=== PATIENT | male | born 1990 | race Two or more races ===

== ENCOUNTER 2020-06-29 22:51 | Emergency (ER) | payer OTHER, SELFPAY ==
[2020-06-30 00:26] VITALS: BP 144/100; PULSE 93; TEMP 36.7; O2SAT 98; BMI 62.8
--- NOTE | 2020-06-30 00:33 | ED.EPISTAXIS ---
History of Present Illness General Chief Complaint: Epistaxis Stated Complaint: Nose bleed Time Seen by Provider: 06/30/20 00:33 Source: patient Mode of arrival: ambulatory Limitations: no limitations History of Present Illness HPI Narrative: This is a 29-year-old male who states that he began having a bloody nose at approximately 9:00 p.m. this evening and he felt like it was coming out of both nostrils at the time, and he states that it lasted approximately 4 minutes. He states that this happened while he was watching TV and denies any use medications or drugs through his nostrils. In addition, he denies any bleeding disorders. Related Data Allergies Allergy/AdvReac Type Severity Reaction Status Date / Time No Known Allergies Allergy Unverified 05/11/20 16:11 Review of Systems Review of Systems: Pertinent positives and negatives as stated in HPI 10 point review systems is otherwise negative. PMFSH Past Medical History Source: nursing notes reviewed Medical History No known health problems No known health problems Social History Social History Advance Directives: No Advance Directives Information Provided: No Physical Exam Vital Signs: Vital Signs: Last Vital Signs Temp 98.0 F 06/30/20 00:26 Pulse 93 06/30/20 00:26 BP 144/100 H 06/30/20 00:26 Pulse Ox 98 06/30/20 00:26 Body Mass Index 62.8 VITAL SIGNS: Reviewed. GENERAL: Well developed, well nourished, in no acute distress. HEAD: Normocephalic/atraumatic, EYES: PERRLA, EOMI intact without pain, no nystagmus/pallor/icterus noted EARS: Ext canals without abnormality, TMs non-bulging and non-erythematous NOSE: Nares patent bilateral , stigmata of bleeding in the left nare without septal hematoma noted, however there is evidence of small ulcerations of unclear etiology. OROPHARYNX: no oral lesions noted, posterior pharynx clear and non-erythematous without noted tonsillar enlargement/erythema/exudates NECK: Supple, no adenopathy LUNGS: Normal breath sounds. No adventitious sounds or accessory muscle use. SpO2<98> CARDIOVASCULAR: Regular rate and rhythm without noted murmurs, no JVD or lower extremity edema. ABDOMEN: Soft, non-tender, non-distended with bowel sounds. No rigidity. No guarding. No palpable masses or hernias noted MUSCULOSKELETAL: No tenderness, deformities, or effusions noted on gross inspection. EXTREMITIES: No cyanosis, clubbing or edema. SKIN: Inspection of the skin reveals no rashes, ulcerations, jaundice, pallor, or petechiae. NEUROLOGIC: Alert and oriented x 4. Strength and sensation to light touch were grossly intact x 4. Course Course Course Narrative: This is a 29-year-old male with history and clinical presentation consistent with benign epistaxis although there is noted punctate ulcerations to the septum of the left nare. Patient will be discharged to home in stable condition with Afrin and instructed to follow-up with his primary care provider by calling the office 1st thing in the morning. Discharge Plan Discharge Clinical Impression: Epistaxis Instructions: Nosebleed (ED) Additional Instructions: 1. Please obtain saline spray, this is available at any [facility] and utilize this in each nare daily to help keep mucosa moist. 2. You have been given a prescription for Afrin which should be used by applying 1 spray to each nare if you develop a repeat nose bleed and apply pressure to the nose after use of the Afrin for 5 minutes. If this does not stop the nose bleed please proceed to the emergency department. 3. There were small ulcerations noted to the septum of the left nare and should be followed up with by your primary care provider and a referral made to a specialist as appropriate. The patient and/or family acknowledge understanding of results (as applicable), diagnosis, treatment plan, need for follow up, and symptoms that should prompt a return to the emergency room. Referrals: Mary Dowling MD [Primary Care Provider] - 2 days ( Please re-evaluate patient's epistaxis as there was noted punctate ulcerations to the septum of the left nare)
[2020-06-30] MEDS: Oxymetazoline HCl 0.05 % Nasal 15 ML SPRAY 2 SPRAY NOSTRIL-B (00:44)
[2020-06-30 00:49] VITALS: PULSE 89
== END 2020-06-30 00:53 | disposition home or self-care (01) ==
PROVIDERS: Emergency Provider Student in an Organized Health Care Education/Training Program; PCP Internal Medicine
DX: R04.0 Epistaxis (principal)
CPT/HCPCS: 99284

== ENCOUNTER 2021-08-20 07:41 | Outpatient (REF) | payer OTHER, SELFPAY ==
[2021-08-20 08:02] LABS: MANUAL DIFF FLAG NO
[2021-08-20 08:18] LABS: Basophils Percent Auto 0.2 % (0-2); Eosinophils Absolute Auto 0.4 X10*3/uL (0.0-0.4); Eosinophils Percent Auto 2.9 % (0-4); Hematocrit 45.4 % (42.0-52.0); Hemoglobin 14.8 g/dl (14.0-18.0); Imm Gran Abs Auto 0.05 X10*3/uL (0.00-0.03); Imm Gran Pct Auto 0.4 % (0.0-0.4); Lymphocytes Absolute Auto 2.5 X10*3/uL (1.2-4.9); Mean Corpuscular HGB Conc 32.6 g/dl (31.0-36.0); Mean Corpuscular Hemoglobin 27.7 pg (27.0-33.0); Mean Platelet Volume 10.9 fL (9.4-12.4); Monocytes Absolute Auto 0.7 X10*3/uL (0.1-1.2); Monocytes Percent Auto 5.5 % (2-11); Neutrophils Absolute Auto 9.4 x10*3/uL (2.0-8.3); Platelet Count 258 X10*3/uL (160-400); Red Blood Count 5.34 X10*6/uL (4.60-5.80); Red Cell Distribution Width 13.6 % (11.0-16.0)
[2021-08-20 08:32] LABS: Alanine Aminotransferase 39 U/L (0-40); Albumin Level 3.9 g/dL (3.5-5.0); Alkaline Phosphatase 85 U/L (39-117); Anion Gap 10 (12-20); Aspartate Amino Transferase 25 U/L (5-37); Bilirubin Total 0.3 mg/dL (0.0-1.0); Blood Urea Nitrogen 11 mg/dL (9-16); Calcium 9.2 mg/dL (8.4-10.2); Carbon Dioxide 25 mmol/L (22-29); Chloride 107 mmol/L (96-108); Cholesterol 157 mg/dL; Estimated Glomerular Filt Rate > 60; Glucose Fasting 100 mg/dL (60-99); HDL Cholesterol 28 mg/dL; LDL Cholesterol Calculated 99 mg/dl; Sodium 138 mmol/L (135-145); Total Protein 7.8 g/dL (6.5-8.0); Triglycerides 153 mg/dL
== END 2021-08-20 07:42 | disposition home or self-care (01) ==
LOC: HO.LAB 07:41
PROVIDERS: PCP Internal Medicine; Visit Provider Internal Medicine
DX: E66.9 Obesity, unspecified (principal); E78.5 Hyperlipidemia, unspecified
CPT/HCPCS: 36415; 80053; 80061; 85025

== ENCOUNTER 2021-10-29 01:53 | Emergency (ER) | payer OTHER, SELFPAY ==
--- NOTE | ~2021-10-29 | CT_ITS ---
EXAMINATION: CT ABDOMEN AND PELVIS WITH CONTRAST CLINICAL INFORMATION: Left lower quadrant abdominal pain COMPARISON: None TECHNIQUE: Multidetector volumetric images were obtained from the superior aspect of the liver through the pubic symphysis following administration 85 mL of Omnipaque 350 intravenous contrast. Sagittal and coronal reformatted images were obtained on the technologist's workstation. Oral contrast: No This CT examination was performed using dose optimization techniques as appropriate, variously including the following: *Automated exposure control *Adjustment of mA and/or kV according to patient size (this includes techniques or standardized protocols for targeted exams where dose is matched to indication/reason for exam; i.e. extremities or head) *Use of iterative reconstruction technique DLP: 1811 mGy-cm FINDINGS: LUNG BASES: The lung bases are clear. LIVER, GALLBLADDER, AND BILIARY TREE: Relative low-attenuation of the liver compared to the spleen suggesting fatty infiltration. No discrete liver mass. No ductal dilatation. The gallbladder is unremarkable with no evidence of radiopaque gallstones, gallbladder wall thickening, or obvious pericholecystic inflammatory changes. PANCREAS: Unremarkable. SPLEEN: Unremarkable. ADRENAL GLANDS: Unremarkable. KIDNEYS AND URETERS: The kidneys are normal in size, shape, and attenuation. No hydronephrosis, hydroureter, or calculi seen. No perinephric stranding. BLADDER: Unremarkable. GASTROINTESTINAL TRACT: The stomach is decompressed. The small bowel is normal in caliber. There is a small duodenal diverticulum. The appendix is normal. The large bowel is redundant but otherwise normal in appearance. No diverticulosis. No focal colitis. ABDOMINAL WALL: No significant hernia is appreciated. LYMPH NODES: No lymphadenopathy. VASCULAR: Unremarkable. PELVIC VISCERA: Unremarkable. OSSEOUS STRUCTURES: No suspicious osseous lesions. Mild degenerative changes in the lower lumbar spine. ORIF left femoral neck CT/CT abdomen pelvis w con IMPRESSION: No acute findings in the abdomen/pelvis to explain left lower quadrant pain. Fleischner guidelines were followed.
[2021-10-29 02:02] VITALS: BP 138/79; PULSE 98; RESP 18; TEMP 36.4; O2SAT 100; BMI 25.9
[2021-10-29 02:15] LABS: Basophils Percent Auto 0.2 % (0-2); Eosinophils Absolute Auto 0.2 X10*3/uL (0.0-0.4); Hematocrit 47.1 % (42.0-52.0); Hemoglobin 15.6 g/dl (14.0-18.0); Imm Gran Abs Auto 0.05 X10*3/uL (0.00-0.03); Imm Gran Pct Auto 0.3 % (0.0-0.4); Lymphocytes Absolute Auto 2.1 X10*3/uL (1.2-4.9); Lymphocytes Percent Auto 14.1 % (20-40); MANUAL DIFF FLAG NO; Mean Corpuscular HGB Conc 33.1 g/dl (31.0-36.0); Mean Corpuscular Hemoglobin 27.5 pg (27.0-33.0); Mean Corpuscular Volume 83.1 fL (80.0-98.0); Mean Platelet Volume 9.3 fL (9.4-12.4); Monocytes Absolute Auto 0.8 X10*3/uL (0.1-1.2); Monocytes Percent Auto 5.4 % (2-11); Neutrophils Absolute Auto 11.5 x10*3/uL (2.0-8.3); Platelet Count 480 X10*3/uL (160-400); Red Blood Count 5.67 X10*6/uL (4.60-5.80); Red Cell Distribution Width 13.4 % (11.0-16.0); White Blood Count 14.5 X10*3/uL (4.8-10.8)
[2021-10-29 02:16] LABS: Appearance Urine CLEAR; Color Urine YELLOW; Glucose Urine UA NEG (NEG); Leukocyte Esterase Urine NEG (NEG); Nitrite Urine NEG (NEG); Urine Blood NEG (NEG); Urine Ketones NEG (NEG); Urine Protein NEG (NEG-TRACE)
[2021-10-29 02:40] LABS: Alanine Aminotransferase 32 U/L (0-40); Albumin Level 4.1 g/dL (3.5-5.0); Alkaline Phosphatase 90 U/L (39-117); Anion Gap 15 (12-20); Aspartate Amino Transferase 20 U/L (5-37); Bilirubin Total 0.4 mg/dL (0.0-1.0); Blood Urea Nitrogen 12 mg/dL (9-16); Calcium 9.4 mg/dL (8.4-10.2); Carbon Dioxide 22 mmol/L (22-29); Chloride 105 mmol/L (96-108); Creatinine Clr Calc Pharmacy 107.1; Estimated Glomerular Filt Rate > 60; Glucose Random 111 mg/dL (60-115); Lipase 13 U/L (8-78); Potassium 4.1 mmol/L (3.3-5.1); Sodium 138 mmol/L (135-145); Total Protein 8.2 g/dL (6.5-8.0)
[2021-10-29 05:16] VITALS: BP 108/64; PULSE 78; RESP 16; TEMP 36.9; O2SAT 97
--- NOTE | 2021-10-29 06:58 | ED_ITS ---
HPI - Abdominal Pain General Chief Complaint: Abdominal Pain Stated Complaint: left abd pain Time Seen by Provider: 10/29/21 06:33 Source: patient Mode of arrival: ambulatory History of Present Illness HPI narrative: 31 yo male presented c/o left lower quadrant pain,nausea X 3 days ,he has hx of Moebius syndrome and hx of obesity elicited complaint: abdominal pain Onset (ago): day(s) (3) Pain Consistency: constant Location: LLQ Quality: aching Radiation: LLQ Migration to: no migration Exacerbating factors: nothing Relieving factors: nothing Related Data Previous Rx's Medication Instructions Recorded clindamycin phosphate 1 % topical 1 applic TOPICAL DAILY 15 Days #50 07/03/20 foam g escitalopram oxalate 10 mg tablet 10 mg PO DAILY 90 Days #90 tab 10/02/20 cephalexin 500 mg tablet 500 mg PO BID 30 Days #60 tab 09/19/21 Allergies Allergy/AdvReac Type Severity Reaction Status Date / Time No Known Allergies Allergy Verified 10/29/21 02:05 Review of Systems Review of Systems Yes all other systems are reviewed and are negative Constitutional: Reports no additional constitutional complaints Cardiovascular: Reports no additional cardiovascular complaints Respiratory: Reports no additional respiratory complaints Gastrointestinal: Reports abdominal pain PMFSH Past Medical History Medical History (Updated 10/29/21 @ 10:00 by Bobo Jones MD) Mobius syndrome No known health problems No known health problems Super obese Surgical History History of circumcision History of open reduction and internal fixation (ORIF) procedure Family History Family History Father Hypertension Mother Hypertension Family/Other Hypertension Diabetes Social History Social History Alcohol intake: never Advance Directives: No Advance Directives Information Provided: No Physical Exam ED Vital Signs: Vital Signs - 24 hr 10/29/21 02:02 10/29/21 05:16 10/29/21 07:57 Temperature 97.5 F 98.4 F Pulse Rate 98 78 76 Respiratory Rate 18 16 18 Blood Pressure 138/79 108/64 101/52 L Pulse Oximetry 100 97 95 BMI result Body Mass Index 25.9 Const General: cooperative Orientation/consciousness: patient oriented x3 HENMT Head: Yes normal to inspection Ears: hearing grossly normal bilaterally General nose exam: Normal external nose present Face and sinus: Yes normal facial exam Mouth: Normal oral and palatal mucosa present Throat: Yes posterior oropharynx normal Neck Neck: Yes normal visual inspection Chest Chest palpation & inspection: normal inspection of the chest Resp Effort & Inspection: normal respiratory effort and able to speak in complete sentences Auscultation: clear to auscultation bilaterally Cardio Jugular venous distension: no JVD Rate: regular rate Rhythm: regular rhythm GI Inspection: Yes normal to inspection Palpation (GI): Soft to palpation and Tenderness to palpation present (GI) (left lower quadrant) Auscultation: normal bowel sounds General: Yes no CVA tenderness Back/Spine/Pelvis Back: no CVA tenderness Skin General skin exam: no rashes or lesions noted, elasticity normal and turgor normal Lesions: no lesions Rashes: no rashes Neuro General: patient oriented x3 Cranial nerves: Yes CN's II-XII intact bilaterally Motor exam (neuro): 5/5 motor strength present throughout Course Reevaluation(s) Reevaluation #1: Patient is feeling much better at this time, CT scan is negative normal appendix no diverticulitis. I discussed with the patient the mother at this time will discharge the patient home with abdominal pain precaution. Time: 09:56 MDM - Abdominal Pain Lab Data Result diagrams: 10/29/21 02:10 10/29/21 02:10 Labs: Lab Results 10/29/21 10/29/21 10/29/21 Range/Units 02:10 02:10 02:10 WBC 14.5 H (4.8-10.8) X10*3/uL RBC 5.67 (4.60-5.80) X10*6/uL Hgb 15.6 (14.0-18.0) g/dl Hct 47.1 (42.0-52.0) % MCV 83.1 (80.0-98.0) fL MCH 27.5 (27.0-33.0) pg MCHC 33.1 (31.0-36.0) g/dl RDW 13.4 (11.0-16.0) % Plt Count 480 H D (160-400) X10*3/uL MPV 9.3 L (9.4-12.4) fL Immature Gran % (Auto) 0.3 (0.0-0.4) % Neut % (Auto) 79.0 H (45-73) % Lymph % (Auto) 14.1 L (20-40) % [place] % (Auto) 5.4 (2-11) % Eos % (Auto) 1.0 (0-4) % Baso % (Auto) 0.2 (0-2) % Lymph # (Auto) 2.1 (1.2-4.9) X10*3/uL Ball[place] # (Auto) 0.8 (0.1-1.2) X10*3/uL Eos # (Auto) 0.2 (0.0-0.4) X10*3/uL Baso # (Auto) 0.0 (0.0-0.2) X10*3/uL Abs Immat Gran (auto) 0.05 H (0.00-0.03) X10*3/uL Absolute Neuts (auto) 11.5 H (2.0-8.3) x10*3/uL Absolute Nucleated RBC 0.000 (0.0-0.012) X10*3/uL Nucleated RBC % (auto) 0.0 (0.0-0.2) /100WBC Sodium 138 (135-145) mmol/L Potassium 4.1 (3.3-5.1) mmol/L Chloride 105 (96-108) mmol/L Carbon Dioxide 22 (22-29) mmol/L Anion Gap 15 (12-20) BUN 12 (9-16) mg/dL Creatinine 0.91 (0.5-1.4) mg/dL Estim Creat Clear Calc 107.1 Estimated GFR > 60 Random Glucose 111 (60-115) mg/dL Calcium 9.4 (8.4-10.2) mg/dL Total Bilirubin 0.4 (0.0-1.0) mg/dL AST 20 (5-37) U/L ALT 32 (0-40) U/L Alkaline Phosphatase 90 (39-117) U/L Total Protein 8.2 H (6.5-8.0) g/dL Albumin 4.1 (3.5-5.0) g/dL Lipase 13 (8-78) U/L Urine Color YELLOW Urine Appearance CLEAR Urine pH 6.0 (5.0-8.0) Ur Specific [place] 1.010 (1.005-1.025) Urine Protein NEG (NEG-TRACE) MG/DL Urine Glucose (UA) NEG (NEG) MG/DL Urine Ketones NEG (NEG) MG/DL Urine Blood NEG (NEG) Urine Nitrite NEG (NEG) Ur Leukocyte Esterase NEG (NEG) Imaging Data CT scan - abdomen: Radiologist's impression: SPLEEN: Unremarkable.? ADRENAL GLANDS: Unremarkable.? KIDNEYS AND URETERS: The kidneys are normal in size, shape, and attenuation. No hydronephrosis, hydroureter, or calculi seen. No perinephric stranding. ? BLADDER: Unremarkable.? GASTROINTESTINAL TRACT: The stomach is decompressed. The small bowel is normal in caliber. There is a small duodenal diverticulum. The appendix is normal. The large bowel is redundant but otherwise normal in appearance. No diverticulosis. No focal colitis.? ABDOMINAL WALL: No significant hernia is appreciated.? LYMPH NODES: No lymphadenopathy. VASCULAR: Unremarkable. PELVIC VISCERA: Unremarkable.? OSSEOUS STRUCTURES: No suspicious osseous lesions. Mild degenerative changes in the lower lumbar spine. ORIF left femoral neck? CT/CT abdomen pelvis w con IMPRESSION: No acute findings in the abdomen/pelvis to explain left lower quadrant pain. ? Fleischner guidelines were followed. Discharge Plan Discharge Clinical Impression: Abdominal pain Patient Disposition: Home, Self-Care Instructions: Abdominal Pain (ED) Additional Instructions: Follow-up with your primary care physician tomorrow, liquid diet for 24 hour, return to the emergency room if you worse any concern Prescriptions: No Action escitalopram oxalate 10 mg tablet 10 mg PO DAILY 90 Days Qty: 90 1RF cephalexin 500 mg tablet 500 mg PO BID 30 Days Qty: 60 0RF clindamycin phosphate 1 % foam 1 applic topical DAILY 15 Days Qty: 50 0RF Referrals: Mary Dowling MD [Primary Care Provider] - 2 days
[2021-10-29] MEDS: ondansetron HCL 4 MG/2 ML VIAL IVPUSH (07:53)
[2021-10-29] MEDS: 0.9 % Sodium Chloride 1,000 ML 999 ML IVCONT (07:53)
[2021-10-29 07:57] VITALS: BP 101/52; PULSE 76; RESP 18; O2SAT 95
--- NOTE | 2021-10-29 08:22 | PC.NURSE ---
Pt received from [employer] fire chief: Pt AOX4 and offers no complaints. Heart sounds normal and lungs diminished. Pt abd round, soft and non-tender. Pt difficult stick and U/S used for IV placed to LAC. Pt may now go to CT. CT aware.
[2021-10-29] MEDS: iohexoL 350 MG/ML 100 ML INFUS..BTL IV (08:32)
--- NOTE | 2021-10-29 10:26 | PC.NURSE ---
Pt D/C from ER with instructions. Pt states understanding and denies any further questions. IV removed prior to D/C.
== END 2021-10-29 10:29 | disposition home or self-care (01) ==
PROVIDERS: Emergency Provider Emergency Medicine; PCP Internal Medicine
DX: R10.32 Left lower quadrant pain (principal); E66.9 Obesity, unspecified
CPT/HCPCS: 36415; 74177; 80053; 81003; 83690; 85025; 96361; 96374; 99283; 99284; J2405; Q9967

== ENCOUNTER 2022-05-07 15:00 | Outpatient (REF) | payer OTHER, SELFPAY | END 2022-05-07 15:01 | disposition home or self-care (01) | LOC: HO.MRI 15:00 | PROVIDERS: PCP Internal Medicine; Visit Provider Internal Medicine | DX: Z13.89 Encounter for screening for other disorder (principal) ==

== ENCOUNTER → 2022-05-20 15:54 | Outpatient (REF) | payer OTHER, SELFPAY | LOC: HO.SL 15:54 | PROVIDERS: PCP Internal Medicine; Visit Provider Internal Medicine | DX: R40.0 Somnolence (principal); E66.9 Obesity, unspecified; R06.83 Snoring | CPT/HCPCS: 95806 ==

== ENCOUNTER 2023-01-11 08:31 | Outpatient (REF) | payer OTHER, SELFPAY ==
[2023-01-11 08:44] LABS: MANUAL DIFF FLAG NO
[2023-01-11 09:06] LABS: Basophils Percent Auto 0.3 % (0-2); Eosinophils Absolute Auto 0.4 X10*3/uL (0.0-0.4); Eosinophils Percent Auto 3.4 % (0-4); Hematocrit 47.3 % (42.0-52.0); Hemoglobin 15.8 g/dl (14.0-18.0); Imm Gran Abs Auto 0.09 X10*3/uL (0.00-0.03); Imm Gran Pct Auto 0.7 % (0.0-0.4); Lymphocytes Absolute Auto 2.8 X10*3/uL (1.2-4.9); Mean Corpuscular HGB Conc 33.4 g/dl (31.0-36.0); Mean Corpuscular Hemoglobin 28.1 pg (27.0-33.0); Mean Platelet Volume 9.7 fL (9.4-12.4); Monocytes Absolute Auto 0.7 X10*3/uL (0.1-1.2); Monocytes Percent Auto 5.7 % (2-11); Neutrophils Absolute Auto 8.7 x10*3/uL (2.0-8.3); Neutrophils Percent Auto 67.9 % (45-73); Platelet Count 429 X10*3/uL (160-400); Red Blood Count 5.63 X10*6/uL (4.60-5.80); Red Cell Distribution Width 13.2 % (11.0-16.0); White Blood Count 12.8 X10*3/uL (4.8-10.8)
[2023-01-11 09:46] LABS: Alanine Aminotransferase 61 U/L (0-40); Alkaline Phosphatase 90 U/L (39-117); Anion Gap 13 (12-20); Aspartate Amino Transferase 43 U/L (5-37); Bilirubin Total 0.4 mg/dL (0.0-1.0); Blood Urea Nitrogen 11 mg/dL (9-16); Calcium 9.6 mg/dL (8.4-10.2); Carbon Dioxide 24 mmol/L (22-29); Chloride 105 mmol/L (96-108); Cholesterol 197 mg/dL; Estimated Glomerular Filt Rate > 60; Glucose Fasting 108 mg/dL (60-99); HDL Cholesterol 30 mg/dL; LDL Cholesterol Calculated 133 mg/dl; Potassium 4.4 mmol/L (3.3-5.1); Sodium 138 mmol/L (135-145); Total Protein 7.7 g/dL (6.5-8.0); Triglycerides 172 mg/dL
[2023-01-11 10:01] LABS: Thyroid Stimulating Hormone 1.25 uIU/mL (0.32-4.0)
== END 2023-01-11 08:32 | disposition home or self-care (01) ==
LOC: HO.LAB 08:31
PROVIDERS: PCP Internal Medicine; Visit Provider Internal Medicine
DX: Z00.00 Encounter for general adult medical examination without abnormal findings (principal); E66.01 Morbid (severe) obesity due to excess calories; E78.5 Hyperlipidemia, unspecified
CPT/HCPCS: 36415; 80053; 80061; 84443; 85025

== ENCOUNTER 2023-01-24 12:42 | Outpatient (REF) | payer OTHER, SELFPAY | END 2023-01-24 12:43 | disposition home or self-care (01) | LOC: HO.US 12:42 | PROVIDERS: PCP Internal Medicine; Visit Provider Internal Medicine | DX: Z13.89 Encounter for screening for other disorder (principal) ==

== ENCOUNTER 2023-02-05 09:09 | Outpatient (REF) | payer OTHER, SELFPAY ==
--- NOTE | ~2023-02-05 | US_ITS ---
EXAMINATION: US COMPLETE ABDOMEN WITH LIVER ELASTOGRAPHY CLINICAL INFORMATION: Elevated liver transaminase levels. COMPARISON: None available. TECHNIQUE: Real-time imaging of the abdominal viscera. Noninvasive ultrasound liver fibrosis assessment is performed using Gilles ElastPQ point quantification shear wave elastography (2D-SWE) with a C5-2 MHz transducer. Multiple elastography samples are obtained. FINDINGS: PANCREAS: The pancreas is obscured from visualization by the overlying bowel gas. ABDOMINAL AORTA: The proximal, middle, and distal aortic segments are normal in caliber. INFERIOR VENA CAVA: Visualized portions are normal. LIVER: The liver demonstrates normal size, contour and increased echogenicity. There are areas of focal fatty sparing. No focal solid lesion or intrahepatic biliary duct dilatation. The right lobe measures 25.1 cm in length. The left lobe measures 14.1 cm in length. Portal flow is hepatopedal. Shear wave liver elastography median stiffness is 1.54 m/s (reference: normal median stiffness is 1.3 m/s or less). IQR/median stiffness to assess sampling precision is 0.14 (reference: good quality data set is IQR/median stiffness of 0.15 or less). GALLBLADDER: Gallbladder wall thickness is 0.2 cm. The gallbladder is physiologically distended without evidence of stones, sludge, polyps, wall thickening or pericholecystic fluid. COMMON BILE DUCT: CBD is not visualized. RIGHT KIDNEY: Normal. No hydronephrosis. No renal calculi or focal parenchymal lesions. The kidney measures 11.4 cm in maximum dimension. LEFT KIDNEY: Normal. No hydronephrosis. No renal calculi or focal parenchymal lesions. The kidney measures 13.2 cm in maximum dimension. SPLEEN: Normal. The spleen measures 13.6 cm in maximum dimension. FREE FLUID: None. US/US abdomen comp w elastography IMPRESSION: 1. Diffuse hepatic steatosis with areas of focal fatty sparing. 2. Liver elastography: Median liver stiffness measures 1.54 m/s corresponding to cACLD (ruled out). REFERENCE: Society of Radiologists in Ultrasound Liver Stiffness Thresholds (2020): LIVER STIFFNESS THRESHOLDS: *Liver Stiffness equal or less than 1.3 m/s: High probability of being normal. *Liver Stiffness less than 1.7 m/s: In the absence of other known clinical signs, rules out compensated advanced chronic liver disease. *Liver Stiffness 1.7-2.1 m/s: Suggestive of compensated advanced chronic liver disease but need further test for confirmation. *Liver Stiffness over 2.1 m/s: Rules in compensated advanced chronic liver disease. *Liver Stiffness over 2.4 m/s: Suggestive of clinically significant portal hypertension. QUALITY OF DATA SET: *IQR/Median value equal or less than 0.15 implies a quality data set. *IQR/Median value over 0.15 implies a poor quality data set. SIGNIFICANT CHANGE FROM PRIOR EXAM: Significant change if liver stiffness measurement is 10% or greater from prior exam. OTHER CONSIDERATIONS: The stage of liver fibrosis may be overestimated in the setting of acute hepatitis, liver inflammation, elevated liver function tests, hepatic vascular congestion, obstructive cholestasis, non-fasting state, and infiltrative diseases such as amyloidosis and lymphoma. In some patients with NAFLD, the liver stiffness thresholds for compensated advanced chronic liver disease may be lower. In causes other than viral hepatitis and NAFLD, liver stiffness thresholds are not well established.
== END 2023-02-05 09:10 | disposition home or self-care (01) ==
LOC: HO.US 09:09
PROVIDERS: PCP Internal Medicine; Visit Provider Internal Medicine
DX: R74.01 Elevation of levels of liver transaminase levels (principal)
CPT/HCPCS: 76705; 76981

== ENCOUNTER 2023-02-09 17:50 | Emergency (ER) | payer OTHER, SELFPAY ==
[2023-02-09 18:04] VITALS: BP 139/85; PULSE 85; RESP 18; TEMP 36.2; O2SAT 95; BMI 60.2
--- NOTE | 2023-02-09 18:12 | ED.GENADULT ---
HPI - General Adult General Chief complaint: Ear Problems Stated complaint: pain in ears Time Seen by Provider: 02/09/23 18:11 Source: patient and family (patient's mother) Mode of arrival: ambulatory Limitations: no limitations History of Present Illness HPI narrative: Patient is a 32 year old assigned male at with a history of mobius syndrome presenting to the emergency department today with bilateral ear pain and a sore throat. Patient states that over the last week he has had bilateral ear pain and a sore throat. Patient denies any dizziness, lightheadedness, abdominal pain, nausea, vomiting, fever, chills, blurry vision, double vision, loss of vision, chest pain, difficulty breathing, shortness of breath, back pain, night sweats, pain with urination, increased urinary frequency, increased urinary urgency, blood in his urine or stool, syncope or a near syncopal episode, recent trauma or falls, bowel incontinence, bladder incontinence, bowel retention, bladder retention, or any other complaints at this time. Onset (ago): week(s) (1) Severity: mild Severity scale (1-10): 3 Quality: dull Pain Consistency: intermittent Relieving factors: none Exacerbating factors: none Associated symptoms: denies other symptoms Treatments prior to arrival: none Related Data Previous Rx's Medication Instructions Recorded escitalopram oxalate 20 mg tablet 20 mg PO DAILY 90 days #90 tabs 08/21/22 cephalexin 500 mg tablet 500 mg PO BID 30 days #60 tabs 11/28/22 Allergies Allergy/AdvReac Type Severity Reaction Status Date / Time No Known Allergies Allergy Verified 02/09/23 18:03 Review of Systems Constitutional: Constitutional: Reports no additional constitutional complaints, Denies chills, Denies fever(s) and Denies night sweats Eyes: Eyes: Reports no additional eye complaints, Denies blurry vision, Denies change in vision, Denies diplopia, Denies eye discharge, Denies loss of vision and Denies eye pain ENT: Denies dizziness Comments: bilateral ear pain, sore throat Cardiovascular: Cardiovascular: Reports no additional cardiovascular complaints, Denies chest pain, Denies lightheadedness, Denies Loss of Consciousness and Denies dyspnea Respiratory: Respiratory: Reports no additional respiratory complaints and Denies dyspnea Gastrointestinal: Gastrointestinal: Reports no additional gastrointestinal complaints, Denies abdominal pain, Denies melena, Denies hematochezia, Denies change in bowel habits and Denies change in stool character Genitourinary: Genitourinary: Reports no additional male genitourinary complaints, Denies hematuria, Denies oliguria, Denies difficulty urinating, Denies dysuria, Denies urinary frequency, Denies urinary hesitancy, Denies urinary incontinence and Denies urinary urgency Musculoskeletal: Musculoskeletal: Reports no additional musculoskeletal complaints, Denies numbness and Denies tingling Neurologic: Denies dizziness, Denies loss of vision, Denies numbness and Denies tingling Psychiatric: Psychiatric: Reports no additional psychiatric complaints Endocrine: Endocrine: Reports no additional endocrine complaints Hematologic/Lymphatic: Hematologic/Lymphatic: Reports no additional hematologic/lymphatic complaints Allergic/Immunologic: Allergic/Immunologic: Reports no additional allergic/immunologic complaints PMFSH Past Medical History Attestation statement: The following information was validated with the patient. (all information validated with the patient's mother) Source: old records reviewed, obtained from family (patient's mother) and nursing notes reviewed Medical History Encounter for physical examination Mild recurrent major depression Mobius syndrome No known health problems No known health problems Super obese Surgical History History of circumcision History of open reduction and internal fixation (ORIF) procedure Family History Family History Father Hypertension Mother Hypertension Family/Other Hypertension Diabetes Social History Social History Housing: Apartment Alcohol intake: never Patient Tobacco Use Status: Never used Tobacco e-Cigarette/Vaping Use: Never Used Second Hand Smoke Exposure: No Advance Directives: No Advance Directives Information Provided: No service: No Current occupational status: disabled Cognitive needs: No Hearing needs: No Vision needs: No Physical Exam ED Vital Signs: Vital Signs - 24 hr 02/09/23 18:04 Temperature 97.1 F Pulse Rate 85 Respiratory Rate 18 Blood Pressure 139/85 Pulse Oximetry 95 Oxygen Delivery Method Room Air BMI result Body Mass Index 60.2 Const General: cooperative, no acute distress, alert and awake Nutritional Appearance: well nourished Orientation/consciousness: patient oriented x3 Limitations: no limitations HENMT Head: Yes normal to inspection and Yes atraumatic Ears: hearing grossly normal bilaterally, external ears normal and TM's normal bilaterally General nose exam: Normal external nose present, no nasal discharge noted and no epistaxis Face and sinus: Yes normal facial exam, No abrasion and No laceration Mouth: Normal oral and palatal mucosa present, oropharynx normal, no drooling and no muffled voice Eyes General: appearance normal, both eyes and all related structures Periorbital: periorbital findings normal Eyelids: Yes eyelids normal Conjunctivae: conjunctivae normal Pupils: Equal, round and reactive pupils present EOM: EOMs intact bilaterally Neck Neck: Yes normal visual inspection, Yes full ROM and Yes no lymphadenopathy Chest Chest palpation & inspection: normal inspection of the chest Resp Effort & Inspection: normal respiratory effort and able to speak in complete sentences Auscultation: clear to auscultation bilaterally Cardio Rate: regular rate Rhythm: regular rhythm GI Inspection: Yes normal to inspection Neuro General: patient oriented x3 and moves all extremities Cranial nerves: Yes Equal, round and reactive pupils present Cognition (Neuro): normal cognition Motor exam (neuro): 5/5 motor strength present throughout Sensory Exam: Normal double simultaneous stimulation for sensation Coordination: [id number] test normal Extrem Other: patient has chronic deformities of bilateral hands General: Yes full ROM and Yes capillary refill normal Psych Appearance: grossly normal Mental Status: mental status grossly normal Affect: normal affect Attitude: cooperative Thought process: Normal thought process present Thought content: Normal thought content present Insight: Good insight present (Psych) Medical Decision Making Medical Decision Making MDM Narrative: Patient is a 32 year old assigned male at with a history of mobius syndrome presenting to the emergency department today with bilateral ear pain and a sore throat. Patient's physical exam was as noted in the physical exam portion of this chart. Patient's COVID/Influenza/Strep/RSV swabs were negative. I explained my physical exam findings as well as all test results to the patient and the patient's mother. I answered all questions asked by the patient and the patient's mother. I stressed the importance of the patient taking his medication as prescribed. I stressed the importance of the patient following up with his primary care provider. I stressed the importance of the patient returning to the emergency department immediately if his symptoms were to worsen or if he were to develop any dizziness, shortness of breath, difficulty breathing, chest pain, blurry vision, loss of vision, nausea, vomiting, abdominal pain, fever, chills, back pain, or any other complaints. Patient and the patient's mother verbalized agreement and understanding with this treatment plan and discharge. Differential Diagnosis Differential Diagnoses: The differential diagnosis associated with the presentation includes viral illness Lab Data MDM Lab Attestation statement: I reviewed the patient's lab results. My interpretation of these studies and their corresponding values is that they are grossly normal. Labs: Lab Results 02/09/23 02/09/23 Range/Units 18:15 18:19 Influenza Type A (PCR) NEGATIVE (Negative) Influenza Type B (PCR) NEGATIVE (Negative) RSV RNA Qual (PCR) NEGATIVE (Negative) SARS-CoV-2 RNA (RT-PCR) NEGATIVE (Negative) S. pyogenes GrpA SELMA Negative (Negative) Independent Historian Clinical information obtained from an independent historian. History obtained from or confirmed by: Parent (patient's mother provided additional history and confirmed the history provided by the patient.) Discharge Plan Discharge Clinical Impression: Viral illness Patient Disposition: Home, Self-Care Instructions: Viral Syndrome (ED) Additional Instructions: Follow up with your primary care provider. Return to the emergency department immediately if your symptoms worsen or if you develop any dizziness, shortness of breath, difficulty breathing, chest pain, blurry vision, loss of vision, nausea, vomiting, abdominal pain, fever, chills, back pain, or any other complaints. Prescriptions: No Action escitalopram oxalate 20 mg tablet 20 mg PO DAILY 90 Days Qty: 90 1RF cephalexin 500 mg tablet 500 mg PO BID 30 Days Qty: 60 0RF Referrals: Mary Dowling MD [Primary Care Provider] - Stand Alone Forms: Work/School Release Print Language: Colombian
--- NOTE | 2023-02-09 18:22 | PC.NURSE ---
viral swabs obtained
[2023-02-09 18:33] LABS: IDNOW Serial# 08D9AD1C; Strep A Nucleic Acid Negative (Negative)
[2023-02-09 19:07] LABS: Influenza A PCR NEGATIVE (Negative); Influenza B PCR NEGATIVE (Negative); Resp Syncy Virus RNA Qual PCR NEGATIVE (Negative); SARS COV2 PCR INHOUSE NEGATIVE (Negative)
== END 2023-02-09 19:41 | disposition home or self-care (01) ==
PROVIDERS: Nurse Practitioner Family; Emergency Provider Emergency Medicine; PCP Internal Medicine
DX: B34.9 Viral infection, unspecified (principal); J02.9 Acute pharyngitis, unspecified; Z20.822 Contact with and (suspected) exposure to COVID-19
CPT/HCPCS: 0241U; 87651; 99282; 99283

== ENCOUNTER 2023-12-02 07:55 | Outpatient (REF) | payer OTHER, SELFPAY ==
[2023-12-02 08:13] LABS: MANUAL DIFF FLAG NO
[2023-12-02 08:53] LABS: Basophils Percent Auto 0.3 % (0-2); Eosinophils Absolute Auto 0.4 X10*3/uL (0.0-0.4); Eosinophils Percent Auto 3.8 % (0-4); Hematocrit 46.1 % (42.0-52.0); Hemoglobin 15.4 g/dl (14.0-18.0); Imm Gran Abs Auto 0.03 X10*3/uL (0.00-0.03); Imm Gran Pct Auto 0.3 % (0.0-0.4); Lymphocytes Absolute Auto 2.7 X10*3/uL (1.2-4.9); Lymphocytes Percent Auto 27.8 % (20-40); Mean Corpuscular HGB Conc 33.4 g/dl (31.0-36.0); Mean Corpuscular Hemoglobin 28.1 pg (27.0-33.0); Mean Platelet Volume 10.9 fL (9.4-12.4); Monocytes Absolute Auto 0.6 X10*3/uL (0.1-1.2); Monocytes Percent Auto 5.9 % (2-11); Neutrophils Percent Auto 61.9 % (45-73); Platelet Count 332 X10*3/uL (160-400); Red Blood Count 5.49 X10*6/uL (4.60-5.80); Red Cell Distribution Width 12.9 % (11.0-16.0); White Blood Count 9.6 X10*3/uL (4.8-10.8)
[2023-12-02 09:42] LABS: Alanine Aminotransferase 19 U/L (0-40); Alkaline Phosphatase 139 U/L (39-117); Aspartate Amino Transferase 12 U/L (5-37); Bilirubin Direct 0.2 mg/dL (0.0-0.5); Bilirubin Total 0.5 mg/dL (0.0-1.0); Total Protein 7.9 g/dL (6.5-8.0)
== END 2023-12-02 07:56 | disposition home or self-care (01) ==
LOC: HO.LAB 07:55
PROVIDERS: PCP Internal Medicine; Visit Provider Internal Medicine
DX: D72.829 Elevated white blood cell count, unspecified (principal); R74.01 Elevation of levels of liver transaminase levels
CPT/HCPCS: 36415; 80076; 85025

== ENCOUNTER 2023-12-04 12:43 | Outpatient (AMB) | payer OTHER, SELFPAY ==
[2023-12-04 12:48] VITALS: BP 118/72; BMI 54.4
--- NOTE | 2023-12-04 12:48 | MHC.PC.OV ---
Vital Signs 12/04/23 12:48 Height 5 ft 3 in Weight 307 lb BMI 54.4 BP 118/72 Blood Pressure Location Lt brachial Position Sitting Intake Visit Reasons: Annual Exam Intake Note: Patient here for a physical exam Finance Vice President Required: No Accompanied by: Mother Allergies No Known Allergies Allergy (Verified 12/04/23 13:07) Medication List - Last Reconciled 12/04/23 by Mary Cameron MD cephalexin 500 mg PO BID 30 days escitalopram oxalate 20 mg PO DAILY 90 days Tobacco use date assessed: 12/04/23 Dental Screening Dental Screen Date: 12/04/23 Did you have a dental visit in the last 12 months?: No Did you have a dental problem in the last 6 months where you did not have access to dental care?: No Was dental information given to patient?: Patient has dentist HPI HPI Comments History of Present Illness Details This is a 33-year-old male with mobius syndrome, super super obesity and major depression that comes accompanied by mother for his physical exam. He has a deformity in hands which has only the 1st and 5th finger and they are deformed. Can not button a shirt or go to the toilet on his own. Was referred for weight management in 2021 and 2022 and did not show. I will refer him again. Depression still present with escitalopram 20 mg and I will increase it to 30 mg. [facility] Medical History Mild recurrent major depression Encounter for physical examination Super obese Mobius syndrome No known health problems No known health problems Surgical History History of open reduction and internal fixation (ORIF) procedure History of circumcision Family History Father Hypertension Mother Hypertension Family/Other Hypertension Diabetes Social History (Updated 12/04/23 @ 13:12 by Mary Cameron MD) Housing: Apartment Alcohol intake: current Alcohol intake frequency: holidays/special occasions only Alcohol type: beer Patient Tobacco Use Status: Never used Tobacco e-Cigarette/Vaping Use: Never Used Second Hand Smoke Exposure: No service: No Current occupational status: disabled Cognitive needs: No Hearing needs: No Vision needs: No Questionnaire PHQ-9 Over the last 2 weeks, how often have you been bothered by any of the following problems? 1. Little interest or pleasure in doing things: more than half the days 2. Feeling down, depressed, or hopeless: more than half the days 3. Trouble falling or staying asleep, or sleeping too much: more than half the days 4. Feeling tired or having little energy: several days 5. Poor appetite or overeating: more than half the days 6. Feeling bad about yourself - or that you are a failure or have let yourself or your family down: not at all 7. Trouble concentrating on things, such as reading the newspaper or watching television: several days 8. Moving or speaking so slowly that other people could have noticed. Or the opposite - being so fidgety or restless that you have been moving around a lot more than usual: several days 9. Thoughts that you would be better off or of hurting yourself in some way: not at all Total score: 11 Depression Screening Interpretation: Positive Depression Screening Follow-up: Existing condition and In treatment Depression Screening Done: Yes 31622 - PHQ-9 Billing: Yes Source: Developed by Drs. Mazin Vale, Dorothy Duvall, Jackson Deluca and colleagues, with an educational jesus from [employer]. Thrive Questionnaire Date Thrive assessed: 12/04/23 I am a: Patient What is your living situation today?: I have a steady place to live Within the past 12 months, did the food you bought not last and you didn't have the money to get more?: Never true Within the past 12 months, did you worry whether your food would run out before you got money to buy more?: Never true Do you have trouble paying for medicines?: No Do you have trouble getting transportation to medical appointments?: No Do you have trouble paying your heating and electricity bill?: No Do you have trouble taking care of your child, family member or friend?: No Do you have trouble with day-to-day activities such as bathing, preparing meals, shopping, managing finances, etc.?: Yes Are you currently unemployed and looking for a job?: No Are you interested in more education?: No Please select the resources that you would like help with: None Currently or been in a relationship where the following occur: no concerns reported THRIVE Score: 0 AUDIT C Alcohol Use Questionnaire (AUDIT-C) 1. How often do you have a drink containing alcohol?: Monthly or less 2. How many drinks containing alcohol do you have on a typical day when you are drinking?: 1 or 2 3. How often do you have six or more drinks on one occasion?: Never Total Score: 1 HORTENCIA-7 AMB Questionnaire HORTENCIA-7 Date HORTENCIA - 7 assessed: 12/04/23 Feeling nervous, anxious, or on edge: 3 = Nearly every day Not being able to stop or control worryin = Not at all Worrying too much about different things: 2 = More than half the days Trouble relaxin = More than half the days Being so restless that it is hard to sit still: 0 = Not at all Becoming easily annoyed or irritable: 2 = More than half the days Feeling afraid as if something awful might happen: 1 = Several days Total HORTENCIA-7 score (0-4 normal; 5-9 mild; 10-14 moderate; 15-21 severe): 10 Source: Developed by Drs. Mazin Vale, Dorothy Duvall, Jackson Deluca and colleagues, with an educational jesus from [employer]. HORTENCIA-7 Assessment Billing HORTENCIA-7 Assessment Tool: HORTENCIA-7 Assessment 55364 Review of Systems Const unobtainable due to endotracheal tube Eyes Reports no additional complaints, Denies change in vision and Denies other visual disturbances Card Denies chest pain at rest, Denies chest pain with activity, Denies edema, Denies irregular heart rhythm, Denies claudication, Denies dyspnea, Denies dyspnea on exertion, Denies orthopnea, Denies paroxysmal nocturnal dyspnea and Denies slow heart rate Resp Denies cough, Denies dyspnea and Denies dyspnea on exertion Physical exam (Primary Care) Vital Signs: Last Vital Signs BP 118/72 12/04/23 12:48 BMI result Body Mass Index 54.4 Tobacco/Smoking Status: Tobacco use Status Tobacco use date assessed 12/04/23 12/04/23 12:56 Patient Tobacco Use Status Never used Tobacco 12/04/23 12:49 e-Cigarette/Vaping Use Never Used 12/04/23 12:49 PHQ-9: PHQ-9 Score PHQ-9: Total score 11 12/04/23 12:56 Depression Screening Interpretation: Positive Depression Screening Follow-up: Existing condition and In treatment Thrive Assessment: Date of Thrive Assessment Date Thrive assessed 12/04/23 12/04/23 12:57 Currently or been in a relationship where the following occur: no concerns reported Const Orientation/consciousness: patient oriented x3 [facility] Head: Yes normal to inspection, Yes normocephalic and Yes atraumatic Ears: external ears normal Eyes General: appearance normal, both eyes and all related structures Eyelids: Yes eyelids normal Conjunctivae: conjunctivae normal Neck Neck: Yes normal visual inspection and Yes supple Resp Effort & Inspection: normal respiratory effort Auscultation: clear to auscultation bilaterally Cardio Jugular venous distension: no JVD Rate: regular rate Rhythm: regular rhythm Heart sounds: S1 normal heart sound present and S2 normal heart sound present GI Inspection: Yes normal to inspection Palpation (GI): Soft to palpation and nontender Auscultation: normal bowel sounds Skin General skin exam: no rashes or lesions noted Neuro General: patient oriented x3 and no focal motor deficits Extrem Other: Hands lack fingers and only has the 1st and the 5th finger in both hands. General: Yes full ROM Assessment and Plan Assessment & Plan (1) Encounter for physical examination: Code(s): Z00.00 - Encounter for general adult medical examination without abnormal findings Plan: Repeat in a year. (2) Mild recurrent major depression: Code(s): F33.0 - Major depressive disorder, recurrent, mild Plan: Increase escitalopram to 30 mg. (3) Super-super obese: Code(s): E66.01 - Morbid (severe) obesity due to excess calories Plan: Referred to weight management for the 3rd time. Orders: Referrals Medical Weight Management Referral E66.01 - Morbid (severe) obesity due to excess calories Medications: Changed From escitalopram oxalate 20 mg PO DAILY 90 days 90 tabs 1RF F33.0 - Major depressive disorder, recurrent, mild To escitalopram oxalate 30 mg (1.5 x 20 mg) PO DAILY 90 days 135 tabs 1RF F33.0 - Major depressive disorder, recurrent, mild Coding Level of Care Code Est Pt Prev Care [id number]) Diagnoses Encounter for physical examination Z00.00 Mild recurrent major depression F33.0 Super-super obese E66.01 Additional Codes HORTENCIA-7 Assessment Billing - HORTENCIA-7 Assessment Tool: HORTENCIA-7 Assessment [id number] ([id number]) Time Spent (min) 33
== END 2023-12-04 13:21 | disposition home or self-care (01) ==
PROVIDERS: Visit Provider Internal Medicine
DX: Z00.00 Encounter for general adult medical examination without abnormal findings (principal); F33.0 Major depressive disorder, recurrent, mild; E66.01 Morbid (severe) obesity due to excess calories; Z68.43 Body mass index [BMI] 50.0-59.9, adult
CPT/HCPCS: 99395

== ENCOUNTER 2024-12-06 13:34 | Outpatient (AMB) | payer OTHER, SELFPAY ==
--- NOTE | 2024-12-06 13:36 | MHC.PC.OV ---
Vital Signs 12/06/24 13:37 Height 5 ft 3 in Weight 282 lb BMI 49.9 BP 122/80 Blood Pressure Location Lt brachial Position Sitting Intake Visit Reasons: Physical Exam Intake Note: Patient here for a physical exam, c/o acid reflux Hospice Office Coordinator Required: No Accompanied by: Father Allergies No Known Allergies Allergy (Verified 12/06/24 13:54) Medication List - Last Reconciled 12/06/24 by Mary Cameron MD cephalexin 500 mg PO BID 30 days escitalopram oxalate 30 mg (1.5 x 20 mg) PO DAILY 90 days [padded commode cushion As directed] Tobacco use date assessed: 12/06/24 Dental Screening Dental Screen Date: 12/06/24 Did you have a dental visit in the last 12 months?: No Did you have a dental problem in the last 6 months where you did not have access to dental care?: No Was dental information given to patient?: Patient has dentist HPI HPI Comments History of Present Illness Details The patient is a 34-year-old male presenting for an annual physical exam. He has a background of major depression noted by a PHQ-9 score of 13, indicating mild symptoms. Past medical history includes Type 2 Diabetes Mellitus and Essential Hypertension which are well-managed with ongoing pharmacotherapy. He has super super obese with a BMI of 50 and was advised to diet and exercise. He has undergone left hip surgery and circumcision in the past, and there are no reported issues related to these surgeries at present. The patient experiences Gastroesophageal Reflux Disease, which affects him postprandially, and constipation.. An abscess is managed with Keflex as per current medication routine. We will like to be referred to Urology for urinary dribbling. [facility] Medical History (Updated 12/06/24 @ 14:07 by Mary Cameron MD) Mild recurrent major depression Encounter for physical examination Super obese Mobius syndrome No known health problems No known health problems Surgical History History of open reduction and internal fixation (ORIF) procedure History of circumcision Family History (Updated 12/06/24 @ 13:59 by Mary Cameron MD) Father Hypertension Diabetes Mother Hypertension Family/Other Hypertension Diabetes Social History Housing: Apartment Alcohol intake: current Alcohol intake frequency: holidays/special occasions only Alcohol type: beer Patient Tobacco Use Status: Never used Tobacco e-Cigarette/Vaping Use: Never Used Second Hand Smoke Exposure: No service: No Current occupational status: disabled Cognitive needs: No Hearing needs: No Vision needs: No Questionnaire PHQ-9 Over the last 2 weeks, how often have you been bothered by any of the following problems? 1. Little interest or pleasure in doing things: more than half the days 2. Feeling down, depressed, or hopeless: nearly every day 3. Trouble falling or staying asleep, or sleeping too much: nearly every day 4. Feeling tired or having little energy: several days 5. Poor appetite or overeating: more than half the days 6. Feeling bad about yourself - or that you are a failure or have let yourself or your family down: not at all 7. Trouble concentrating on things, such as reading the newspaper or watching television: several days 8. Moving or speaking so slowly that other people could have noticed. Or the opposite - being so fidgety or restless that you have been moving around a lot more than usual: several days 9. Thoughts that you would be better off or of hurting yourself in some way: not at all Total score: 13 Depression Screening Interpretation: Positive Depression Screening Follow-up: Existing condition, In treatment, Community Mental Health Worker F/U and Follow-up Visit Requested Depression Screening Done: Yes 75690 - PHQ-9 Billing: Yes Source: Developed by Drs. Mazin Vale, Dorothy Duvall, Jackson Deluca and colleagues, with an educational jesus from [employer] Thrive Questionnaire Date Thrive assessed: 12/06/24 I am a: Patient What is your living situation today?: I have a steady place to live Within the past 12 months, did the food you bought not last and you didn't have the money to get more?: Never true Within the past 12 months, did you worry whether your food would run out before you got money to buy more?: Never true Do you have trouble paying for medicines?: No Do you have trouble getting transportation to medical appointments?: No Do you have trouble paying your heating and electricity bill?: No Do you have trouble taking care of your child, family member or friend?: No Do you have trouble with day-to-day activities such as bathing, preparing meals, shopping, managing finances, etc.?: Yes Are you currently unemployed and looking for a job?: No Are you interested in more education?: No Please select the resources that you would like help with: None Currently or been in a relationship where the following occur: No concerns reported THRIVE Score: 0 AUDIT C Alcohol Use Questionnaire (AUDIT-C) 1. How often do you have a drink containing alcohol?: Monthly or less 2. How many drinks containing alcohol do you have on a typical day when you are drinking?: 1 or 2 3. How often do you have six or more drinks on one occasion?: Never Total Score: 1 Score Reviewed/Action Taken: No HORTENCIA-7 AMB Questionnaire HORTENCIA-7 Date HORTENCIA - 7 assessed: 12/06/24 Feeling nervous, anxious, or on edge: 3 = Nearly every day Not being able to stop or control worryin = Not at all Worrying too much about different things: 2 = More than half the days Trouble relaxin = More than half the days Being so restless that it is hard to sit still: 0 = Not at all Becoming easily annoyed or irritable: 2 = More than half the days Feeling afraid as if something awful might happen: 1 = Several days Total HORTENCIA-7 score (0-4 normal; 5-9 mild; 10-14 moderate; 15-21 severe): 10 Source: Developed by Drs. Mazin Vale, Dorothy Duvall, Jackson Deluca and colleagues, with an educational jesus from [employer] HORTENCIA-7 Assessment Billing HORTENCIA-7 Assessment Tool: HORTENCIA-7 Assessment 66995 Review of Systems Const All systems reviewed & are unremarkable except as noted in HPI and below Card Denies chest pain at rest, Denies chest pain with activity, Denies edema, Denies irregular heart rhythm, Denies claudication, Denies dyspnea, Denies dyspnea on exertion, Denies orthopnea, Denies paroxysmal nocturnal dyspnea and Denies slow heart rate Resp Denies cough, Denies dyspnea and Denies dyspnea on exertion GI Denies abdominal pain, Denies change in bowel habits, Denies excessive flatus, Denies nausea and Denies vomiting Physical exam (Primary Care) Vital Signs: Last Vital Signs BP 122/80 12/06/24 13:37 BMI result Body Mass Index 49.9 BMI Assessment/Plan discussion: High BMI High, discussed plan: lifestyle, weight reduction, dietary and physical activity Tobacco/Smoking Status: Tobacco use Status Tobacco use date assessed 12/06/24 12/06/24 13:45 Patient Tobacco Use Status Never used Tobacco 12/06/24 13:38 e-Cigarette/Vaping Use Never Used 12/06/24 13:38 PHQ-9: PHQ-9 Score PHQ-9: Total score 13 12/06/24 13:45 Depression Screening Interpretation: Positive Depression Screening Follow-up: Existing condition, In treatment, Community Mental Health Worker F/U and Follow-up Visit Requested Thrive Assessment: Date of Thrive Assessment Date Thrive assessed 12/06/24 12/06/24 13:45 Currently or been in a relationship where the following occur: No concerns reported HENMT Head: Yes normal to inspection, Yes normocephalic and Yes atraumatic Ears: external ears normal Eyes General: appearance normal, both eyes and all related structures Eyelids: Yes eyelids normal Conjunctivae: conjunctivae normal Neck Neck: Yes normal visual inspection and Yes supple Resp Effort & Inspection: normal respiratory effort Auscultation: clear to auscultation bilaterally Cardio Jugular venous distension: no JVD Rate: regular rate Rhythm: regular rhythm Heart sounds: S1 normal heart sound present and S2 normal heart sound present GI Inspection: Yes normal to inspection Palpation (GI): Soft to palpation and nontender Auscultation: normal bowel sounds Skin General skin exam: no rashes or lesions noted Neuro General: no focal motor deficits Extrem Other: Abnormal fingers in both hands Psych Appearance: grossly normal Coding Level of Care Code Est Pt Level 4 (90014) Est Pt Prev Care 18-39y(67084) Diagnoses Encounter for physical examination Z00.00 Mild recurrent major depression F33.0 Super-super obese E66.01 Chronic GERD K21.9 Chronic idiopathic constipation K59.04 Dribbling urine N39.43 Additional Codes PHQ-9 - 12217 - PHQ-9 Billing: Yes ([id number]) HROTENCIA-7 Assessment Billing - HORTENCIA-7 Assessment Tool: HORTENCIA-7 Assessment 56800 ([id number]) Time Spent (min) 38 Assessment & Plan Assessment & Plan (1) Encounter for physical examination: Code(s): Z00.00 - Encounter for general adult medical examination without abnormal findings Category: Medical (2) Mild recurrent major depression: Code(s): F33.0 - Major depressive disorder, recurrent, mild Category: Medical (3) Super-super obese: Code(s): E66.01 - Morbid (severe) obesity due to excess calories Category: Medical (4) Chronic GERD: Code(s): K21.9 - Gastro-esophageal reflux disease without esophagitis Category: Medical (5) Chronic idiopathic constipation: Code(s): K59.04 - Chronic idiopathic constipation Category: Medical (6) Dribbling urine: Code(s): N39.43 - Post-void dribbling Category: Medical Plan The patient continues with citalopram for mild depression, as indicated by the PHQ-9 score. Type 2 Diabetes Mellitus and Essential Hypertension remain well-controlled under current medications. His commitment to exercise is beneficial for weight and overall health, complementing medication management. Gastroesophageal Reflux Disease is addressed with dietary adjustments and medications taken post meals. Antibiotic therapy with Keflex addresses the abscess. The patient is referred to a urologist for further examination of reported discomfort. Patient was informed and verbally consented to the use of an ambient scribe for clinic note documentation during this visit. During the visit, I discussed with the patient the continued use of citalopram for managing mild depression. We reviewed his diabetes and hypertension management strategies, emphasizing the role of regular exercise in conjunction with medication. For his gastrointestinal symptoms, dietary management was discussed, and the current medication regimen was deemed appropriate. I outlined the need for urological evaluation due to reported discomfort, ensuring he understands the rationale and the referral process. Orders: Orders Lipid Panel Today E66.01 - Morbid (severe) obesity due to excess calories, E78.5 - Hyperlipidemia, unspecified Comprehensive [place]. Panel Fast Today E66.01 - Morbid (severe) obesity due to excess calories Complete Blood Count Auto Diff Today E66.01 - Morbid (severe) obesity due to excess calories Thyroid Stimulating Hormone Today E66.01 - Morbid (severe) obesity due to excess calories Referrals Urology Referral N39.43 - Post-void dribbling Medications: New omeprazole 20 mg PO DAILY 90 days 90 caps 1RF K21.9 - Gastro-esophageal reflux disease without esophagitis sennosides (senna) 8.6 mg PO BEDTIME 90 days 90 caps 1RF K59.04 - Chronic idiopathic constipation Refilled cephalexin 500 mg PO BID 30 days 60 tabs 6RF L70.0 - Acne vulgaris escitalopram oxalate 30 mg (1.5 x 20 mg) PO DAILY 90 days 135 tabs 1RF F33.0 - Major depressive disorder, recurrent, mild Patient Instructions: - Continue taking citalopram as prescribed. - Maintain regular exercise routine. - Monitor blood sugar levels and blood pressure as directed. - Follow dietary recommendations to manage acid reflux. - Take Keflex as directed for abscess. - Attend referral appointment with urologist. - Contact the clinic if experiencing any new symptoms or concerns.
[2024-12-06 13:37] VITALS: BP 122/80; BMI 49.9
--- OUTSIDE RECORDS SUMMARY | 2024-12-06 15:37 | XMS_ITS | Clinical Summary ---
Author Organization [facility] Address [address] [place] [id number] Phone Care Team Providers Care Rug Receiving Clerk Name Role Phone Jennie Rob MD Primary Care Provider Unava ilable Immunizations Immunization Administration Dates Next Due DTP 04/24/1993, 2,01/23/1992,11/22 DTaP 5 12/22/1996 Hep B, ped/adol 10/07/1997,01/28/1997,12/22/1996 Hib (PRP-T) 12/22/1992, 2,01/23/1992,11/22 IPV 12/22/1996, 3,01/23/1992,11/22 Influenza Split 05/30/2010 Influenza, injectable, trivalent 06/07/2009 MMR 10/22/1995,12/22/1992 Meningococcal Conj (Menactra) MCV4P 10/05/2007 Td (adult) (MBL), 2 Lf tetan us toxoid, PF, adsorbed 12/22/2004 Tdap 10/05/2007 Varicella 06/07/2009,10/07/1997 Family History Relation Name Status Comments Brother Alive Brother: Alive and well Father Alive Father: Asthma and hypertension Maternal Grandfather Materna l grandfather: Diabetes mellitus Maternal Grandmother Materna l grandmother: Diabetes mellitus Mother Alive Mother: Alive a nd well Social History Tobacco Use Types Packs/Day Years Used Date Smoking Tobacco: Never Comments:Never smoker Sex and Gender Information Value Date Recorded Sex Assigned at Not on file Legal Sex Male 4:40 PM EDT Gender Identity Not on file Sexual Orientation Not on file Last Filed Vital Signs Vital Sign Reading Time Taken Comments Blood Pressure 120/80 02/05/2012 12:00 AM EDT Pulse - - Temperature 36.5 ??C (97.7 ??F) 05/30/2010 12:00 AM E DT Respiratory Rate - - Oxygen Saturation - - Inhaled Oxygen Concentration - - Weight 122 kg (268 lb) 02/05/2012 12:00 AM EDT Height 168.4 cm (5' 6.3 ) 02/05/2012 12:00 AM ED T Body Mass Index 42.87 02/05/2012 12:00 AM EDT Plan of Treatment Health Maintenance Due Date Last Done Comments DTaP,Tdap,and Td Vaccines (7 - Td or Tdap) 10/05/2017 10/05/2007, 12/22/2004, 12/22/1996, Additional history exists Influenza Vaccines (#1) 2024 05/30/2010, 06/07 COVID-19 Vaccine ( season) 2024 HIB Vaccines Completed 12/22/1992, 03/27, 01/23/1992, Additional history exists MMR Vaccines Completed 10/22/1995, 12/22/1992 IPV Vaccines Completed 12/22/1996, 03/27, 01/23/1992, Additional history exists Hepatitis B Vaccines Completed 10/07/1997, 01/28/1997, 12/22/1996 Meningococcal Vaccine Completed 10/05/2007 Varicella Vaccines Completed 06/07/2009, 10/07/1997 HPV Vaccines Aged Out No longer eligi ble based on patient's age to complete this topic Hepatitis A Vaccines Aged Out No long er eligible based on patient's age to complete this topic Men B Vaccine Aged Out No longer elig ible based on patient's age to complete this topic Pneumococcal Vaccine Aged Out No long er eligible based on patient's age to complete this topic Care Teams Rug Receiving Clerk Relationship Specialty Start Date End Date Jennie Rob MD PCP - General 04/04/17
--- OUTSIDE RECORDS SUMMARY | 2024-12-06 15:37 | XMS_ITS | Encounter Summary ---
Author Organization [facility] Address [address] [place] [id number] Phone Care Team Providers Care Angle Roll Operator Name Role Phone Jennie Rob MD Primary Care Provider Unava ilable Encounter Details Date Type Department Care Team (Late st Contact Info) Description 03/16/2013 Documentation [facility] [address] [place], [place] [phone] Family Medicine, Physician [address] [place] [address] Social History Tobacco Use Types Packs/Day Years Used Date Smoking Tobacco: Never Assessed Sex and Gender Information Value Date Recorded Sex Assigned at Not on file Legal Sex Male 4:40 PM EDT Gender Identity Not on file Sexual Orientation Not on file documented as of this encounter Plan of Treatment Not on file documented as of this encounter Visit Diagnoses Not on filedocumented in this encounter Care Teams Angle Roll Operator Relationship Specialty Start Date End Date Jennie Rob MD PCP - General 04/04/17 documented as of this encounter
--- OUTSIDE RECORDS SUMMARY | 2024-12-06 15:37 | XMS_ITS | Encounter Summary ---
Author Organization [facility] Address [address] [place] [phone] Phone Care Team Providers Care Inner Layer Scrubber Tender Name Role Phone Jennie Rob MD Primary Care Provider Unava ilable Encounter Details Date Type Department Care Team (Late st Contact Info) Description 06/18/2010 Documentation [facility] [address] [place], [place] [phone] Family Medicine, Physician [address] [place] [address] Social History Tobacco Use Types Packs/Day Years [...] on filedocumented in this encounter Care Teams Inner Layer Scrubber Tender Relationship Specialty Start Date End Date Jennie Rob MD PCP - General 04/04/17 documented as of this encounter
--- OUTSIDE RECORDS SUMMARY | 2024-12-06 15:37 | XMS_ITS | Encounter Summary ---
Author Organization [facility] Address [address] [place] [address] Phone Care Team Providers Care Fuel System Maintenance Worker Name Role Phone Jennie Rob MD Primary Care Provider Unava ilable Encounter Details Date Type Department Care Team (Late st Contact Info) Description 04/10/2017 Conversion Encounter [facility] - [address] [address] Social History Tobacco Use Types Packs/Day Years [...] on filedocumented in this encounter Care Teams Fuel System Maintenance Worker Relationship Specialty Start Date End Date Jennie Rob MD PCP - General 04/04/17 documented as of this encounter
== END 2024-12-06 14:05 | disposition home or self-care (01) ==
LOC: HO.HMCH 13:34
PROVIDERS: PCP Internal Medicine; Visit Provider Internal Medicine
DX: Z00.00 Encounter for general adult medical examination without abnormal findings (principal); F33.0 Major depressive disorder, recurrent, mild; E66.01 Morbid (severe) obesity due to excess calories; Z68.42 Body mass index [BMI] 45.0-49.9, adult; K21.9 Gastro-esophageal reflux disease without esophagitis; K59.04 Chronic idiopathic constipation; N39.43 Post-void dribbling

== ENCOUNTER → 2024-12-06 13:34 | Outpatient (BNVA) | payer OTHER, SELFPAY | PROVIDERS: PCP Internal Medicine; Visit Provider Internal Medicine | DX: Z00.00 Encounter for general adult medical examination without abnormal findings (principal); F33.0 Major depressive disorder, recurrent, mild; E66.01 Morbid (severe) obesity due to excess calories; K21.9 Gastro-esophageal reflux disease without esophagitis; K59.04 Chronic idiopathic constipation; N39.43 Post-void dribbling | CPT/HCPCS: 96127; 99212 ==

== ENCOUNTER 2025-01-29 07:15 | Outpatient (REF) | payer OTHER, SELFPAY ==
[2025-01-29 07:28] LABS: MANUAL DIFF FLAG NO
[2025-01-29 07:55] LABS: Basophils Percent Auto 0.2 % (0-2); Eosinophils Absolute Auto 0.3 X10*3/uL (0.0-0.4); Eosinophils Percent Auto 3.1 % (0-4); Hematocrit 46.3 % (42.0-52.0); Hemoglobin 15.5 g/dl (14.0-18.0); Imm Gran Abs Auto 0.02 X10*3/uL (0.00-0.03); Imm Gran Pct Auto 0.2 % (0.0-0.4); Lymphocytes Absolute Auto 3.1 X10*3/uL (1.2-4.9); Lymphocytes Percent Auto 31.6 % (20-40); Mean Corpuscular HGB Conc 33.5 g/dl (31.0-36.0); Mean Corpuscular Hemoglobin 27.9 pg (27.0-33.0); Mean Corpuscular Volume 83.4 fL (80.0-98.0); Mean Platelet Volume 10.1 fL (9.4-12.4); Monocytes Absolute Auto 0.5 X10*3/uL (0.1-1.2); Monocytes Percent Auto 5.1 % (2-11); Neutrophils Absolute Auto 5.8 x10*3/uL (2.0-8.3); Neutrophils Percent Auto 59.8 % (45-73); Platelet Count 380 X10*3/uL (160-400); Red Blood Count 5.55 X10*6/uL (4.60-5.80); Red Cell Distribution Width 12.6 % (11.0-16.0); White Blood Count 9.7 X10*3/uL (4.8-10.8)
[2025-01-29 08:35] LABS: Alanine Aminotransferase 27 U/L (0-40); Albumin Level 4.2 g/dL (3.5-5.0); Alkaline Phosphatase 108 U/L (39-117); Anion Gap 10 (12-20); Aspartate Amino Transferase 15 U/L (5-37); Bilirubin Total 0.2 mg/dL (0.0-1.0); Blood Urea Nitrogen 15 mg/dL (9-16); Calcium 9.3 mg/dL (8.4-10.2); Carbon Dioxide 26 mmol/L (22-29); Chloride 104 mmol/L (96-108); Cholesterol 173 mg/dL (<200); Estimated Glomerular Filt Rate > 60; Glucose Fasting 254 mg/dL (60-99); HDL Cholesterol 29 mg/dL (>40); LDL Cholesterol Calculated 80 mg/dL (<100); Potassium 3.7 mmol/L (3.3-5.1); Sodium 136 mmol/L (135-145); Total Protein 7.6 g/dL (6.5-8.0); Triglycerides 323 mg/dL (<150)
== END 2025-01-29 07:16 | disposition home or self-care (01) ==
LOC: HO.LAB 07:15
PROVIDERS: PCP Internal Medicine; Visit Provider Internal Medicine
DX: E66.01 Morbid (severe) obesity due to excess calories (principal); E78.5 Hyperlipidemia, unspecified
CPT/HCPCS: 36415; 80053; 80061; 84443; 85025

== ENCOUNTER 2025-02-01 17:19 | Emergency (ER) | payer OTHER, SELFPAY ==
[2025-02-01 18:37] VITALS: BP 117/72; PULSE 82; RESP 18; TEMP 36.2; O2SAT 97; BMI 48.6
--- NOTE | 2025-02-01 18:41 | PC.NURSE ---
Father stated actually, I forgot, he is a diabetic when this RN noted that the patient has Rx Metformin.
--- NOTE | 2025-02-01 18:43 | ED.GENADULT ---
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 Denies cough or cold symptoms or dysuria no fevers. No change in medication regimen. Patient denies that he is eating excess simple sugars. Related Data Previous Rx's ?Medication ?Instructions ?Recorded padded commode cushion #1 ea 07/14/24 cephalexin 500 mg tablet 500 mg PO BID 30 days #60 tabs 12/06/24 escitalopram oxalate 20 mg tablet 30 mg (1.5 x 20 mg) PO DAILY 90 12/06/24 days #135 tabs omeprazole 20 mg capsule,delayed 20 mg PO DAILY 90 days #90 caps 12/06/24 release sennosides 8.6 mg capsule (senna) 8.6 mg PO BEDTIME 90 days #90 caps 12/06/24 blood sugar diagnostic (FreeStyle #50 ea 01/30/25 Lite Strips) blood-glucose meter (FreeStyle #1 ea 01/30/25 Lite Meter kit) lancets 28 gauge (FreeStyle #100 ea 01/30/25 Lancets) metformin 500 mg tablet 500 mg PO BID 90 days #180 tabs 01/30/25 Allergies Allergy/AdvReac Type Severity Reaction Status Date / Time No Known Allergies Allergy Verified 02/01/25 18:39 [facility] Past Medical History Medical History Mild recurrent major depression Encounter for physical examination Super obese Mobius syndrome No known health problems No known health problems Surgical History History of open reduction and internal fixation (ORIF) procedure History of circumcision Family History Family History (Updated 12/06/24 @ 13:59 by Mary Cameron MD) Father Hypertension Diabetes Mother Hypertension Family/Other Hypertension Diabetes Social History Social History Housing: Apartment Alcohol intake: current Alcohol intake frequency: does not drink Alcohol type: beer Patient Tobacco Use Status: Never used Tobacco Smoked in Last 30 Days: No e-Cigarette/Vaping Use: Never Used Second Hand Smoke Exposure: No Use of substances other than those prescribed or required for medical reasons: No Advance Directives: No Advance Directives Information Provided: Yes service: No Current occupational status: disabled Cognitive needs: No Hearing needs: No Vision needs: No Physical Exam ED Vital Signs: Vital Signs - 24 hr 02/01/25 18:37 02/01/25 23:12 02/02/25 02:06 Temperature 97.2 F 96.9 F 96.9 F Pulse Rate 82 83 83 Respiratory Rate 18 16 16 Blood Pressure 117/72 120/80 120/80 Pulse Oximetry 97 Oxygen Delivery Method Room Air Room Air Room Air BMI result Body Mass Index 48.6 Course Course Course Narrative: RME: 31-year-old male history of diabetes brought by father for patient complaining of dizziness. Patient is found to be hyperglycemic of 356 and 400. Patient denies any chest pain or shortness of breath. We will do labs. 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 Denies cough or cold symptoms or dysuria no fevers. No change in medication regimen. Patient denies that he is eating excess simple sugars. Problem: Developmental delays, diabetes, obesity History: Per patient and his father I have considered the following differential diagnoses: Hyperglycemia, HHS, DKA, UTI, other infection Plan: Screening labs obtained from triage, the patient is mildly hyperglycemic in the 200s, no evidence of electrolyte abnormality to suggest DKA. The patient is giving a urine sample now. I have independently reviewed the following tests: Labs: No leukocytosis, not anemic, no electrolyte abnormality, blood sugar 262, urine not infected Lab Data 02/01/25 18:54 02/01/25 18:54 Labs: Lab Results 02/01/25 02/02/25 Range/Units 18:54 00:53 WBC 8.6 (4.8-10.8) X10*3/uL RBC 5.64 (4.60-5.80) X10*6/uL Hgb 15.8 (14.0-18.0) g/dl Hct 46.3 (42.0-52.0) % MCV 82.1 (80.0-98.0) fL MCH 28.0 (27.0-33.0) pg MCHC 34.1 (31.0-36.0) g/dl RDW 12.5 (11.0-16.0) % Plt Count 405 H (160-400) X10*3/uL MPV 9.7 (9.4-12.4) fL Immature Gran % (Auto) 0.3 (0.0-0.4) % Neut % (Auto) 56.0 (45-73) % Lymph % (Auto) 34.0 (20-40) % [place] % (Auto) 6.5 (2-11) % Eos % (Auto) 3.0 (0-4) % Baso % (Auto) 0.2 (0-2) % Lymph # (Auto) 2.9 (1.2-4.9) X10*3/uL [place] # (Auto) 0.6 (0.1-1.2) X10*3/uL Eos # (Auto) 0.3 (0.0-0.4) X10*3/uL Baso # (Auto) 0.0 (0.0-0.2) X10*3/uL Abs Immat Gran (auto) 0.03 (0.00-0.03) X10*3/uL Absolute Neuts (auto) 4.8 (2.0-8.3) x10*3/uL Absolute Nucleated RBC 0.000 (0.0-0.012) X10*3/uL Nucleated RBC % (auto) 0.0 (0.0-0.2) /100WBC Sodium 135 (135-145) mmol/L Potassium 3.9 (3.3-5.1) mmol/L Chloride 103 (96-108) mmol/L Carbon Dioxide 24 (22-29) mmol/L Anion Gap 12 (12-20) BUN 11 (9-16) mg/dL Creatinine 0.66 (0.5-1.4) mg/dL Estim Creat Clear Calc 202.3 Estimated GFR > 60 Random Glucose 262 H (60-115) mg/dL Calcium 9.6 (8.4-10.2) mg/dL Total Bilirubin 0.3 (0.0-1.0) mg/dL AST 18 (5-37) U/L ALT 28 (0-40) U/L Alkaline Phosphatase 108 (39-117) U/L Troponin I High Sens < 2.7 (<3.5-35.0) ng/L Total Protein 7.5 (6.5-8.0) g/dL Albumin 4.3 (3.5-5.0) g/dL Beta-Hydroxybutyrate 0.06 (0.02-0.27) mmol/L Urine Color Yellow Urine Appearance Clear Urine pH 5.5 (5.0-9.0) Ur Specific [place] 1.010 (1.005-1.025) Urine Protein Negative (Neg-Trace) mg/dL Urine Glucose (UA) Negative (Negative) mg/dL Urine Ketones Negative (Negative) mg/dL Urine Blood Negative (Negative) Urine Nitrite Negative (Negative) Ur Leukocyte Esterase Trace H (Negative) Urine RBC 0-2 (0-2) /HPF Urine WBC 0-5 (0-5) /HPF Ur Squamous Epith Cells 0-2 (0-2) /HPF Urine Bacteria None Seen (None Seen) Hyaline Casts 0-2 (0-2) /LPF Discharge Plan Discharge Clinical Impression: Hyperglycemia Patient Disposition: Home, Self-Care Instructions: Diabetic Hyperglycemia (ED) Additional Instructions: All of your screening labs were normal, your blood sugar read 262. You do not have a urinary tract infection. Follow up with your primary care provider, you may need medication adjustment. Call tomorrow to schedule an appointment. In the meantime, take your metformin as directed. Prescriptions: No Action (DME) padded commode cushion See Rx Instructions .Route .MEDSUPPLY Qty: 1 0RF Rx Instructions: As directed metformin 500 mg tablet 500 mg PO BID 90 Days Qty: 180 2RF (DME) blood-glucose meter [FreeStyle Lite Meter] Kit See Rx Instructions .Route Qty: 1 0RF Rx Instructions: As directed (DME) FreeStyle Lite Strips Strip See Rx Instructions .Route Qty: 50 6RF Rx Instructions: Use 1 test strip once a day (DME) lancets [FreeStyle Lancets] 28 gauge misc See Rx Instructions .Route Qty: 100 2RF Rx Instructions: Use 1 lancet once a day omeprazole 20 mg capsule,delayed release(DR/EC) 20 mg PO DAILY 90 Days Qty: 90 1RF senna 8.6 mg capsule 8.6 mg PO BEDTIME 90 Days Qty: 90 1RF cephalexin 500 mg tablet 500 mg PO BID 30 Days Qty: 60 6RF escitalopram oxalate 20 mg tablet 30 mg PO DAILY 90 Days Qty: 135 1RF Interventions: ED Discharge Assessment Last Done: 02/02/25 02:06 Discharge Date/Time: 02/02/25 02:06 Print Language: Greek
--- NOTE | 2025-02-01 18:44 | ECG_ITS ---
Test Reason : dizziness Blood Pressure : */* mmHG Vent. Rate : 81 BPM Atrial Rate : 81 BPM P-R Int : 110 ms QRS Dur : 80 ms QT Int : 364 ms P-R-T Axes : 52 41 50 degrees QTcB Int : 422 ms Sinus rhythm with short ID Otherwise normal ECG No previous ECGs available Referred By: Segundo King Electronically Signed By: GRABIEL NAYAK MD
[2025-02-01 19:03] LABS: MANUAL DIFF FLAG NO
[2025-02-01 19:05] LABS: Basophils Percent Auto 0.2 % (0-2); Eosinophils Absolute Auto 0.3 X10*3/uL (0.0-0.4); Hematocrit 46.3 % (42.0-52.0); Hemoglobin 15.8 g/dl (14.0-18.0); Imm Gran Abs Auto 0.03 X10*3/uL (0.00-0.03); Imm Gran Pct Auto 0.3 % (0.0-0.4); Lymphocytes Absolute Auto 2.9 X10*3/uL (1.2-4.9); Mean Corpuscular HGB Conc 34.1 g/dl (31.0-36.0); Mean Corpuscular Volume 82.1 fL (80.0-98.0); Mean Platelet Volume 9.7 fL (9.4-12.4); Monocytes Absolute Auto 0.6 X10*3/uL (0.1-1.2); Monocytes Percent Auto 6.5 % (2-11); Neutrophils Absolute Auto 4.8 x10*3/uL (2.0-8.3); Platelet Count 405 X10*3/uL (160-400); Red Blood Count 5.64 X10*6/uL (4.60-5.80); Red Cell Distribution Width 12.5 % (11.0-16.0); White Blood Count 8.6 X10*3/uL (4.8-10.8)
[2025-02-01 19:17] LABS: Alanine Aminotransferase 28 U/L (0-40); Albumin Level 4.3 g/dL (3.5-5.0); Alkaline Phosphatase 108 U/L (39-117); Anion Gap 12 (12-20); Aspartate Amino Transferase 18 U/L (5-37); Beta-Hydroxybutyrate 0.06 mmol/L (0.02-0.27); Bilirubin Total 0.3 mg/dL (0.0-1.0); Blood Urea Nitrogen 11 mg/dL (9-16); Calcium 9.6 mg/dL (8.4-10.2); Carbon Dioxide 24 mmol/L (22-29); Chloride 103 mmol/L (96-108); Creatinine Clr Calc Pharmacy 202.3; Estimated Glomerular Filt Rate > 60; Glucose Random 262 mg/dL (60-115); Potassium 3.9 mmol/L (3.3-5.1); Sodium 135 mmol/L (135-145); Total Protein 7.5 g/dL (6.5-8.0)
[2025-02-01 19:26] LABS: Troponin-I High Sensitivity < 2.7 ng/L (<3.5-35.0)
[2025-02-01 23:12] VITALS: BP 120/80; PULSE 83; RESP 16; TEMP 36.1
--- OUTSIDE RECORDS SUMMARY | 2025-02-01 23:58 | XMS_ITS | Encounter Summary ---
Author Organization [facility] Address [address] [place] [id number] Phone Care Team Providers Care Sewing Teacher Name Role Phone Jennie Rob MD Primary Care Provider Unava ilable Encounter Details Date Type Department Care Team (Late st Contact Info) Description 06/18/2010 Documentation [facility] [address] [place], [place] [phone] Family Medicine, Physician [address] [place] [address] Social History Tobacco Use Types Packs/Day Years [...] on filedocumented in this encounter Care Teams Sewing Teacher Relationship Specialty Start Date End Date Jennie Rob MD PCP - General 04/04/17 documented as of this encounter
[2025-02-02 01:00] LABS: Appearance Urine Clear; Color Urine Yellow; Glucose Urine UA Negative (Negative); Leukocyte Esterase Urine Trace (Negative); Nitrite Urine Negative (Negative); PH 5.5 (5.0-9.0); UMIC TRIGGER UACC YES; Urine Blood Negative (Negative); Urine Ketones Negative (Negative); Urine Protein Negative (Neg-Trace)
[2025-02-02 01:03] LABS: Bacteria Urine None Seen (None Seen); Hyaline Casts Urine 0-2 /LPF (0-2); RBC Urine 0-2 /HPF (0-2); Squamous Epithelial Cell Urine 0-2 /HPF (0-2); WBC Urine 0-5 /HPF (0-5)
[2025-02-02 02:06] VITALS: BP 120/80; PULSE 83; RESP 16; TEMP 36.1
== END 2025-02-02 02:06 | disposition home or self-care (01) ==
PROVIDERS: Physician Assistant; Emergency Provider Emergency Medicine; PCP Internal Medicine
DX: R73.9 Hyperglycemia, unspecified (principal); R42 Dizziness and giddiness; R94.31 Abnormal electrocardiogram [ECG] [EKG]; Z79.899 Other long term (current) drug therapy
CPT/HCPCS: 36415; 80053; 81001; 81003; 82010; 84484; 85025; 93005; 99283; 99284

== ENCOUNTER → 2025-02-01 18:44 | Outpatient (BNV) | payer OTHER, SELFPAY | PROVIDERS: Emergency Provider Emergency Medicine; PCP Internal Medicine; Visit Provider Internal Medicine Cardiovascular Disease | DX: R42 Dizziness and giddiness (principal) | CPT/HCPCS: 93010 ==

== ENCOUNTER 2025-02-07 15:05 | Outpatient (REF) | payer OTHER, SELFPAY ==
--- OUTSIDE RECORDS SUMMARY | 2025-02-07 16:54 | XMS_ITS | Encounter Summary ---
Author Organization [facility] Address [address] [place] [id number] Phone Care Team Providers Care Cook Cashier Food Prep Name Role Phone Jennie Rob MD Primary Care Provider Unava ilable Encounter Details Date Type Department Care Team (Late st Contact Info) Description 06/18/2010 Documentation [facility] [address] [place], [place] [phone] Family Medicine, Physician [address] [place] [address] Social History Tobacco Use Types Packs/Day Years [...] on filedocumented in this encounter Care Teams Cook Cashier Food Prep Relationship Specialty Start Date End Date Jennie Rob MD PCP - General 04/04/17 documented as of this encounter
[2025-02-10 16:59] LABS: Glutamic acid decarboxylase Ab <5 IU/mL (<5)
[2025-02-11 19:44] LABS: Insulin Auto Antibody <0.4 U/mL (<0.4)
== END 2025-02-07 15:06 | disposition home or self-care (01) ==
LOC: HO.LAB 15:05
PROVIDERS: PCP Internal Medicine; Visit Provider Internal Medicine
DX: E11.9 Type 2 diabetes mellitus without complications (principal)
CPT/HCPCS: 36415; 86337; 86341

== ENCOUNTER 2025-06-28 12:50 | Outpatient (AMB) | payer OTHER, SELFPAY ==
--- NOTE | 2025-06-28 13:02 | MHC.OFFVIS ---
Intake Visit Reasons: POST VOID DRIBBLING Intake Note: Patient is present for POST VOID DRIBBLING Urology Medication:NONE Antibiotic Allergy:NONE Blood Thinner:NONE TODAY'S PVR:0ML'S Director Of Cardiopulmonary Services Required: No Allergies No Known Allergies Allergy (Verified 06/28/25 14:04) Medication List - Last Reconciled 06/28/25 by BERNIE Vanegas- blood sugar diagnostic (FreeStyle Lite Strips) Use 1 test strip once a day blood-glucose meter (FreeStyle Lite Meter kit) As directed cephalexin 500 mg PO BID 30 days clotrimazole-betamethasone 1-0.05 % 1 appl topical BID 4 weeks escitalopram oxalate 30 mg (1.5 x 20 mg) PO DAILY 90 days lancets (FreeStyle Lancets) Use 1 lancet once a day metformin 500 mg PO BID 90 days omeprazole 20 mg PO DAILY 90 days [padded commode cushion As directed] sennosides (senna) 8.6 mg PO BEDTIME 90 days HPI Comments Details: Sim is a very pleasant 34-year-old male patient of Dr. Whalen who was accompanied by his father at today's office visit. He has a past medical history of depression, obesity, and Moebius syndrome. He presents to the office today as a new patient for dysuria in urinary dribbling. In discussion with the patient today he reports noting for many years he has been having ongoing issues with urinary dribbling however most recently has been experiencing dysuria. He does report a previous history of a circumcision in 2017. 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 We did discuss balanitis as well as proper care of the area. We did discuss correlation of obesity in relation to buried penis. He also reports urinary dribbling. We did discuss pelvic floor exercises in relation to urinary dribbling. He otherwise denies urinary urgency, urinary frequency, incontinence, nocturia, hematuria, foul smelling urine, changes to urinary stream, flank pain, fever, and or chills. He is happy with his current voiding parameters. In office urinalysis results reviewed with the patient today. PVR 0 mL. All questions were answered. He otherwise offers no other issues or concerns. [facility] Medical History Mild recurrent major depression Encounter for physical examination Super obese Mobius syndrome No known health problems No known health problems Surgical History History of open reduction and internal fixation (ORIF) procedure History of circumcision Family History (Updated 12/06/24 @ 13:59 by Mary Cameron MD) Father Hypertension Diabetes Mother Hypertension Family/Other Hypertension Diabetes Social History Housing: Apartment Alcohol intake: current Alcohol intake frequency: does not drink Alcohol type: beer Patient Tobacco Use Status: Never used Tobacco e-Cigarette/Vaping Use: Never Used Second Hand Smoke Exposure: No service: No Current occupational status: disabled Cognitive needs: No Hearing needs: No Vision needs: No Review of Systems Const All systems reviewed & are unremarkable except as noted in HPI and below Physical Exam Const General: cooperative, comfortable, no acute distress, well developed, alert and awake Nutritional Appearance: obese Orientation/consciousness: patient oriented x3 Limitations: no limitations HEENT Head: Yes normal to inspection, Yes normocephalic and Yes atraumatic Ears: hearing grossly normal bilaterally Neck Neck: Yes normal visual inspection and Yes trachea midline Chest Chest palpation & inspection: normal inspection of the chest Resp Effort & Inspection: normal respiratory effort and able to speak in complete sentences Cardio Rate: regular rate GI Inspection: Yes normal to inspection Other: as per HPI General: Yes no CVA tenderness Back/Spine/Pelvis Back: no CVA tenderness Skin General skin exam: no rashes or lesions noted Neuro General: patient oriented x3 Extrem General: Yes normal to inspection Psych Appearance: well kempt Mental Status: mental status grossly normal Speech and movement: Normal speech and movement present and Clear speech present Affect: normal affect Attitude: cooperative Thought process: Normal thought process present Thought content: Normal thought content present Insight: Fair insight present (Psych) Judgement: Fair judgement present (Psych) Office Procedures Post Void Residual Post Residual Void Post Void Residual (PVR): 0 15210-[id number] Void Residual by ultrasound Results AMB Urinalysis, Automated UA Leukoctes 0 Nadja/uL Last Edit by HUSSEIN Eckert on 06/28/25 13:59 UA Nitrite Negative Last Edit by [facility] on 06/28/25 13:59 UA Urobilinogen 0.2 mg/dL Last Edit by [facility]ran[facility] on 06/28/25 13:59 UA Protein 15 mg/dL Last Edit by Roderick Carranza [facility] on 06/28/25 13:59 UA pH 6.0 Last Edit by Roderick Carranza [facility] on 06/28/25 13:59 UA Blood 0 Aneudy/uL Last Edit by Roderick Carranza [facility] on 06/28/25 13:59 UA Specific [place] 1.025 Last Edit by Roderick Carranza [facility] on 06/28/25 13:59 UA Ketone Negative Last Edit by Roderick Carranza [facility] on 06/28/25 13:59 UA Bilirubin 0 mg/dL Last Edit by Roderick Carranza [facility] on 06/28/25 13:59 UA Glucose 0 mg/dL Last Edit by Roderick Carranza [facility] on 06/28/25 13:59 Results Reviewed Results Reviewed: Laboratory Last Values Urine pH (Auto) 6.0 06/28/25 13:59 Specific [place] (Auto) 1.025 06/28/25 13:59 Urine Protein (Auto) 15 mg/dL 06/28/25 13:59 Glucose (UA)(Auto) 0 mg/dL 06/28/25 13:59 Urine Ketones (Auto) Negative 06/28/25 13:59 Urine Blood (Auto) 0 Aneudy/uL 06/28/25 13:59 Urine Nitrite (Auto) Negative 06/28/25 13:59 Urine Bilirubin (Auto) 0 mg/dL 06/28/25 13:59 Urine Urobilinogen (Auto) 0.2 mg/dL 06/28/25 13:59 Leukocyte Esterase (Auto) 0 Nadja/uL 06/28/25 13:59 Assessment & Plan Assessment & Plan (1) Balanitis: Code(s): N48.1 - Balanitis Category: Medical (2) Dribbling urine: Code(s): N39.43 - Post-void dribbling Category: Medical Plan In office urinalysis results reviewed with the patient today; as noted above. PVR 0ml's. We discussed balanitis as well as importance of weight loss in relation to buried penis. Will refer to weight management for further assessment evaluation. Start clotrimazole and betamethasone as discussed and prescribed. We discussed proper care in the area. Will obtain retroperitoneal ultrasound for further assessment evaluation. We did discussed pelvic floor exercises in relation to urinary dribbling. Follow-up in 1-3 months with imaging and PVR; or sooner with any issues, concerns, and or questions. Orders: Orders AMB Urinalysis Automated Today Z13.9 - Encounter for screening, unspecified US retroperitoneal comp Today N48.1 - Balanitis Referrals Medical Weight Management Referral E66.9 - Obesity, unspecified Medications: New clotrimazole-betamethasone 1-0.05 % Apply thin coat 2 times per day 1 appl topical BID 45 grams 1RF 4 weeks N48.1 - Balanitis Patient Instructions: The patient had an opportunity to ask questions regarding the treatment plan. All questions were answered. Physical exam, labs, and imaging were discussed and reviewed in detail. As well as risks, benefits, and discussion of treatment choices. No major barriers to understanding were identified. The patient expressed understanding and agreement with the above treatment plan. The patient was made aware they should contact our office by phone for worsening of their current condition, the appearance of new symptoms, or with any questions or concerns. Compliance is encouraged with any medications and follow up testing that is ordered. It is a privilege to be allowed the opportunity to participate in? your urological care.? Again, if you have any questions or concerns If you have any questions or concerns please do not hesitate to contact me. The office is [phone]. This note is constructed using voice recognition software. While every effort has been made to ensure accuracy under presser errors may have been included. Yours sincerely, SCARLETT Vanegas Coding Level of Care Code New Pt Level 4 (96709) Diagnoses Balanitis N48.1 Dribbling urine N39.43 CPT Codes Post Residual Void - PVR CPT Code: 80138-Ymqr Void Residual by ultrasound ([id number])
--- OUTSIDE RECORDS SUMMARY | 2025-06-28 15:28 | XMS_ITS | Encounter Summary ---
Author Organization [facility] Address [address] [place] [address] Phone Care Team Providers Care Can Capper Name Role Phone Jennie Rob MD Primary Care Provider Unava ilable Encounter Details Date Type Department Care Team (Late st Contact Info) Description 06/18/2010 Documentation [facility] [address] [place], [place] [phone] Family Medicine, Physician [address] [place] [address] Social History Tobacco Use Types Packs/Day Years [...] on filedocumented in this encounter Care Teams Can Capper Relationship Specialty Start Date End Date Jennie Rob MD PCP - General 04/04/17 documented as of this encounter
--- OUTSIDE RECORDS SUMMARY | 2025-06-28 15:28 | XMS_ITS | Encounter Summary ---
Author Organization [facility] Address [address] [place] [address] Phone Care Team Providers Care Sheriffs Officer Name Role Phone Jennie Rob MD Primary Care Provider Unava ilable Encounter Details Date Type Department Care Team (Late st Contact Info) Description 04/10/2017 Conversion Encounter [facility] - [address] [address] Social History Tobacco Use Types Packs/Day Years [...] on filedocumented in this encounter Care Teams Sheriffs Officer Relationship Specialty Start Date End Date Jennie Rob MD PCP - General 04/04/17 documented as of this encounter
--- OUTSIDE RECORDS SUMMARY | 2025-06-28 15:28 | XMS_ITS | Clinical Summary ---
Author Organization [facility] Address [address] [place] [address] Phone Care Team Providers Care Bottle Dealer Name Role Phone Jennie Rob MD Primary [...] AM EDT Pulse - - Temperature 36.5 C (97.7 F) 05/30/2010 12:00 AM EDT Respiratory Rate - - Oxygen Saturation - [...] 10/05/2017 10/05/2007, 12/22/2004, 12/22/1996, Additional history exists HPV Vaccines (1 - 3-dose SCDM series) 2018 Influenza Vaccines (#1) 2025 05/30/2010, 06/07 COVID-19 Vaccine (2024- season) 2025 HIB Vaccines Completed 12/22/1992, 03/27, 01/23/1992, Additional history exists MMR Vaccines Completed 10/22/1995, 12/22/1992 IPV Vaccines Completed 12/22/1996, 03/27, 01/23/1992, Additional history exists Hepatitis B Vaccines Completed 10/07/1997, 01/28/1997, 12/22/1996 Meningococcal Vaccine Completed 10/05/2007 Varicella Vaccines Completed 06/07/2009, 10/07/1997 Hepatitis A Vaccines Aged Out No long er eligible based on patient's age to complete this topic Men B Vaccine Aged Out No longer elig ible based on patient's age to complete this topic Pneumococcal Vaccine Aged Out No long er eligible based on patient's age to complete this topic Care Teams Bottle Dealer Relationship Specialty Start Date End Date Jennie Rob MD PCP - General 04/04/17
--- OUTSIDE RECORDS SUMMARY | 2025-06-28 15:28 | XMS_ITS | Encounter Summary ---
Author Organization [facility] Address [address] [place] [address] Phone Care Team Providers Care Director Global Medical Affairs Name Role Phone Jennie Rob MD Primary Care Provider Unava ilable Encounter Details Date Type Department Care Team (Late st Contact Info) Description 03/16/2013 Documentation [facility] [address] [place], [place] [phone] Family Medicine, Physician [address] [place] [address] Social History Tobacco Use Types Packs/Day Years [...] on filedocumented in this encounter Care Teams Director Global Medical Affairs Relationship Specialty Start Date End Date Jennie Rob MD PCP - General 04/04/17 documented as of this encounter
== END 2025-06-28 13:46 | disposition home or self-care (01) ==
LOC: HO.HUSH 12:51
PROVIDERS: PCP Internal Medicine; Visit Provider Nurse Practitioner Family
DX: N48.1 Balanitis (principal); N39.43 Post-void dribbling; Z13.9 Encounter for screening, unspecified
CPT/HCPCS: 99204

== ENCOUNTER → 2025-06-28 12:50 | Outpatient (BNVA) | payer OTHER, SELFPAY | PROVIDERS: PCP Internal Medicine; Visit Provider Nurse Practitioner Family | DX: N39.43 Post-void dribbling (principal); N48.1 Balanitis | CPT/HCPCS: 51798; 81003; 99202 ==